=== PATIENT | male | born 2000 | race Caucasian/White ===

== ENCOUNTER 2023-09-16 22:26 | Emergency (ER) | payer OTHER, SELFPAY ==
--- NOTE | ~2023-09-16 | CT_ITS ---
EXAMINATION: CT ABDOMEN AND PELVIS WITHOUT CONTRAST CLINICAL INFORMATION: Left flank pain COMPARISON: None available. TECHNIQUE: Multidetector volumetric imaging was performed from the superior aspect of the liver through the pubic symphysis. Sagittal and coronal reformatted images were obtained on the technologist's workstation. This CT examination was performed using dose optimization techniques as appropriate, variously including the following: *Automated exposure control *Adjustment of mA and/or kV according to patient size (this includes techniques or standardized protocols for targeted exams where dose is matched to indication/reason for exam; i.e. extremities or head) *Use of iterative reconstruction technique DLP: 725 mGy-cm FINDINGS: LUNG BASES: The visualized lung bases are unremarkable. LIVER, GALLBLADDER, AND BILIARY TREE: The liver is normal in size, shape, and attenuation. No focal hepatic lesion or biliary ductal dilatation is identified on this noncontrast exam. Gallbladder appears slightly contracted and otherwise unremarkable. PANCREAS: Unremarkable. SPLEEN: Unremarkable. ADRENAL GLANDS: Unremarkable. KIDNEYS AND URETERS: No hydronephrosis or obstructing calculus bilaterally. BLADDER: Nearly empty and not adequately evaluated. GASTROINTESTINAL TRACT: No evidence of bowel obstruction or significant wall thickening. The appendix appears borderline dilated, though without surrounding inflammation to strongly suggest acute appendicitis. No free fluid or free air is seen. ABDOMINAL WALL: No significant hernia is appreciated. LYMPH NODES: Normal. VASCULAR: Unremarkable. PELVIC VISCERA: Unremarkable. OSSEOUS STRUCTURES: Multiple endplate Schmorl's nodes noted in the region of the thoracolumbar junction. CT/CT abdomen pelvis wo IV con IMPRESSION: No acute findings identified in the abdomen/pelvis. No hydronephrosis or obstructing calculus.
--- NOTE | ~2023-09-16 | US_ITS ---
EXAMINATION: US SCROTUM CLINICAL INFORMATION: Testicular pain. COMPARISON: None available. TECHNIQUE: A sonogram of the scrotum was performed assessing renae-scale appearance and color Doppler flow. Spectral Doppler analysis of the arterial and venous flow were performed in the testes bilaterally. FINDINGS: RIGHT: Right testicle measures 3.7 x 1.9 x 2.3 cm, volume 8 mL. No focal testicular parenchymal lesions are visualized. Spectral Doppler analysis of the arterial and venous flow is normal in the right testis. Right epididymal head is normal in size. 0.2 cm simple appearing epididymal head cyst. No right hydrocele or varicocele is seen. Right epididymal Doppler flow is normal. LEFT: Left testicle measures 3.9 x 2.2 x 2.7 cm, volume 12 mL. No focal testicular parenchymal lesions are visualized. Spectral Doppler analysis of the arterial and venous flow is normal in the left testis. Left epididymal head is normal in size. 0.3 cm simple appearing epididymal head cyst. No left hydrocele or varicocele is seen. Left epididymal Doppler flow is normal. US/US scrotum IMPRESSION: No significant sonographic abnormality to explain the patient's symptoms.
[2023-09-16 22:36] VITALS: BP 136/78; PULSE 90; RESP 16; TEMP 36.8; O2SAT 98; BMI 36.8
--- OUTSIDE RECORDS SUMMARY | 2023-09-17 00:13 | XMS_ITS | Continuity of Care Document ---
Author Name Unknown Organization [facility] Address [address] [place] [phone]- Care Team Providers Care Customs Director Name Role Phone Davion Polk MD Primary Care Physician Encounter [facility] [place] Date(s): 12/22/22 - 12/29/[address] [id number] Attending Physician: Emery Hamilton MD Admitting Physician: Emery Hamilton MD Referring Physician: Davion Polk MD Allergies, Adverse Reactions, Alerts Substance Reaction Severity Status penicillins Active Nuts Active Other Environmental Allergy Active Peanuts Active Other Food Allergy Active Immunizations Given and Recorded Vaccine Date Status Refusal Reason SARS-CoV-2 (COVID-19) mRNA BNT-162b2 vac 03/03/21 Given SARS-CoV-2 (COVID-19) mRNA BNT-162b2 vac 02/10/21 Given Medications acetaminophen 325 mg oral tablet 1 tablet = 325 mg, By Mouth, Every 4 hours, PRN for fever/pain, Maintenance, Tablet Start Date: 04/05/12 Status: Ordered buPROPion 150 mg/24 hours (XL) oral tablet, extended release 1 tablet = 150 mg, By Mouth, Every 24 hours, dose increase, add to 300 mg tablet for total daily dose of 450 mg, # 30 tablet, 2 Refills, Maintenance, 08/24/22 16:24:00 EST, ER Tablet, [facility] #[id number], Partial fill upon patient request if t... Start Date: 08/24/22 Status: Ordered buPROPion 300 mg/24 hours (XL) oral tablet, extended release 1 tablet, By Mouth, Daily, for 90 days, # 90 tablet, 2 Refills, Physician Stop 05/21/23 16:24:00 EDT, 08/24/22 16:24:00 EST, [facility][id number] Start Date: 08/24/22 Stop Date: 05/21/23 Status: Ordered Epipen Auto Injector 0.3 mg injectable solution 0.3mg., Intramuscular, Once, PRN anaphylaxis, Maintenance Start Date: 04/05/12 Status: Ordered escitalopram 20 mg oral tablet 1 tablet, By Mouth, Daily, # 90 tablet, 2 Refills, Maintenance, 08/24/22 16:24:00 EST, [facility] #[id number] Start Date: 08/24/22 Status: Ordered fluPHENAZine 1 mg oral tablet See Instructions, 1 tablet in am and 2 tablets at bedtime by mouth, # 90 tablet, Refills 2, Tot. Refills 2, 08/24/22 16:24:00 EST, Instructions Replace Required Details, Route to Pharmacy Electronically, [facility] #[id number] Start Date: 08/24/22 Status: Ordered ibuprofen 200 mg oral tablet 1 tablet = 200 mg, By Mouth, Every 4 hours, PRN as needed for pain, Maintenance Start Date: 04/05/12 Status: Ordered lamotrigine 100 mg oral tablet 1, tablet, By Mouth, 2 times a day, for 90 days, # 180 tablet, Refills 2, Tot. Refills 2, PhysicianStop 05/21/23 16:24:00 EDT, 08/24/22 16:24:00 EST, Route to Pharmacy Electronically, [facility] #[id number] Start Date: 08/24/22 Stop Date: 05/21/23 Status: Ordered topiramate 50 mg oral tablet 2 tablet = 100 mg, By Mouth, 2 times a day, # 120 tablet, 5 Refills, Maintenance, 08/24/22 16:24:00EST, Tablet, [facility] #[id number], Partial fill upon patient request if the prescription is for a schedule II opioid drug. Start Date: 08/24/22 Status: Ordered Zyrtec 10 mg oral tablet 1 tablet = 10 mg, By Mouth, Daily at bedtime, PRN Sinus Symptoms, Maintenance Start Date: 04/05/12 Status: Ordered Problem List Condition Confirmation Course Effective Dates Status [facility] St atus Informant Asperger syndrome Confirmed Active Chronic motor tic Confirmed Active Depression Confirmed Active Obese class II Confirmed Active Vital Signs Most recent to oldest [Reference Range]: 1 2 Height 169 cm (12/22/22 10:15 AM) 169 cm (12/22/22 9:28 AM) Weight 105.7 kg (12/22/22 10:15 AM) 105.7 kg (12/22/22 9:28 AM) Oxygen Saturation [94-100 %] 98 % (12/22/22 9:28 AM) Pulse Rate [55-90 bpm] 75 bpm (12/22/22 9:28 AM) Body Mass Index [18.5-24.99 kg/m2] 37.01 kg/m2 *>HHI* (12/22/22 9:28 AM) Blood Pressure [90-138/55-84 mm Hg] 114/ 70mm Hg (12/22/22 9:28 AM) Mode of Delivery (Oxygen) Room air (12/22/22 9:28 AM) Blood pressure sites Arm, left (12/22/22 9:28 AM) Dry Weight 105.7 kg (12/22/22 9:28 AM) Weight Obtained Via Standing scale (12/22/22 9:28 AM) Dry Weight Obtained Via Standing scale (12/22/22 9:28 AM) Patient Care team information Care Team Personnel Name: Davion Polk MD Position: [facility] General Pediatrics MD Member Role: PCP Address: Address: [address] [place] [address] Name: Mike Cleary MD Position: [facility] Psychiatry MD Member Role: Lifetime Consulting Physician Address: Address: [address] [place] [phone]- Name: Eber Jara MD Position: [facility] Psychiatry MD Member Role: Lifetime Consulting Physician Address: Address: [address] [place] [phone]- Care Team Related Persons Name: ROSELINE YODER Address: [address] [address] Name: JAMES MACE Address: [address] [address]
--- OUTSIDE RECORDS SUMMARY | 2023-09-17 00:13 | XMS_ITS | Continuity of Care Document ---
Author Name Unknown Organization [facility] Address [address] [place] [address], [address], [address] [place] [phone]- Care Team Providers Care Neon Molder Name Role Phone Davion Polk MD Primary Care Physician Encounter [facility] [place] Date(s): 08/01/23 - 08/31/23 [facility] [address] [facility], 3rd Floor, [address] [place] [phone]- Allergies, Adverse Reactions, Alerts Substance Reaction Severity Status penicillins Active Nuts Active Peanuts Active Other Food Allergy Active Other Environmental Allergy Active Mustard Active Immunizations Given and Recorded Vaccine Date Status Refusal Reason SARS-CoV-2 (COVID-19) mRNA BNT-162b2 vac 03/03/21 Given SARS-CoV-2 (COVID-19) mRNA BNT-162b2 vac 02/10/21 Given Medications Benadryl 25 mg oral tablet 25 mg, 1, tablet, By Mouth, Every 6 hours, 0 Refills, Maintenance Start Date: 08/24/23 Status: Ordered buPROPion 150 mg/24 hours (XL) oral tablet, extended release 1 tablet = 150 mg, By Mouth, Every 24 hours, add to 300 mg tablet for total daily dose of 450 mg, #30 tablet, 2 Refills, Maintenance, 08/23/23 17:58:00 EST, ER Tablet, [facility] #[id number], Partial fill upon patient request if the prescription... Start Date: 08/23/23 Status: Ordered buPROPion 300 mg/24 hours (XL) oral tablet, extended release 1 tablet, By Mouth, Daily, for 90 days, # 90 tablet, 2 Refills, Physician Stop 05/19/24 17:58:00 EDT, 08/23/23 17:58:00 EST, [facility] #[id number], 170, cm, 07/31/23 18:26:00 EDT, Height, 101.7, kg, 07/31/23 18:26:00 EDT, Dry Weight Start Date: 08/23/23 Stop Date: 05/19/24 Status: Ordered Epipen Auto Injector 0.3 mg injectable solution 0.3mg., Intramuscular, Once, PRN anaphylaxis, Maintenance Start Date: 04/05/12 Status: Ordered escitalopram 20 mg oral tablet 1 tablet, By Mouth, Daily, # 90 tablet, 2 Refills, Maintenance, 08/23/23 17:58:00 EST, [facility] #[id number], 170, cm, 07/31/23 18:26:00 EDT, Height, 101.7, kg, 07/31/23 18:26:00 EDT, Dry Weight Start Date: 08/23/23 Status: Ordered lamotrigine 100 mg oral tablet 1, tablet, By Mouth, 2 times a day, for 90 days, # 180 tablet, Refills 2, Tot. Refills 2, PhysicianStop 05/19/24 17:58:00 EDT, 08/23/23 17:58:00 EST, Route to Pharmacy Electronically, [facility] #[id number], 170, cm, 07/31/23 18:26:00 EDT, [facility] Start Date: 08/23/23 Stop Date: 05/19/24 Status: Ordered onabotulinumtoxinA 100 units injection See Instructions, 100 units to be reconstituted and injected by neurologist, # 1 each, 3 Refills, Maintenance, 05/23/23 14:03:00 EDT, [facility], Partial fill upon patient request ifthe prescription is for a schedule II opioid drug.,... Start Date: 05/23/23 Status: Ordered tetrabenazine 12.5 mg oral tablet 1 tablet = 12.5 mg, By Mouth, 2 times a day, # 60 tablet, 3 Refills, Maintenance, 03/27/23 15:34:00EDT, Tablet, [facility], Partial fill upon patient request if the prescription is for a schedule II opioid drug., 169, cm, 02/20/23 15... Start Date: 03/27/23 Status: Ordered topiramate 50 mg oral tablet 2 tablet = 100 mg, By Mouth, 2 times a day, # 120 tablet, 5 Refills, Maintenance, 08/23/23 17:58:00EST, Tablet, [facility] #[id number], Partial fill upon patient request if the prescription is for a schedule II opioid drug., 170, cm, 07/31/23 18... Start Date: 08/23/23 Status: Ordered Zyrtec 10 mg oral tablet 1 tablet = 10 mg, By Mouth, Daily at bedtime, PRN Sinus Symptoms, Maintenance Start Date: 04/05/12 Status: Ordered Problem List Condition Confirmation Course Effective Dates Status Health St atus Informant Asperger syndrome Confirmed Active Chronic motor tic Confirmed Active Daytime somnolence Confirmed Active Depression Confirmed Active Dysphasia 1 Confirmed 02/24/22 Active Obstructive sleep apnea Confirmed Active Severe obesity (BMI 35.0-39.9) with comorbidity Confirmed Active 1Outside Source Comment: Last Assessment & Plan: He will cough after swallowing water, had him turn his head and swallow and that worked, and then able to gulp down water. Social History Social History Type Response Smoking Status Never (less than 100 in lifetime) entered on: 05/23/23 Sex Patient Care team information Care Team Personnel Name: Davion Polk MD Position: [facility] Physician - Pediatrics Member Role: PCP Address: Address: [address] [place] [address] Name: Mike Cleary MD Position: [facility] Physician - Behavioral Health Member Role: Lifetime Consulting Physician Address: Address: [address] [place] [address]- Name: Eber Jara MD Position: [facility] Physician - Behavioral Health Member Role: Lifetime Consulting Physician Address: Address: [address] [place] [address]- Care Team Related Persons Name: ROSEILNE YODER Address: [address] Name: JAMES MACE Address: [address] [address]
--- OUTSIDE RECORDS SUMMARY | 2023-09-17 00:13 | XMS_ITS | Continuity of Care Document ---
Author Name Unknown Organization [facility] Address [address] [place] [address], [address] Floor, [address] [place] [address]- Care Team Providers Care Mover Helper Name Role Phone Davion Polk MD Primary Care Physician Encounter [facility] [place] Date(s): 03/19/23 - 04/18/23 [facility] [address] [facility], 3rd Floor, [address] [place] [address]- Allergies, Adverse Reactions, Alerts Substance Reaction Severity Status penicillins Active Nuts Active Peanuts Active Other Food Allergy Active Other Environmental Allergy Active Mustard Active Immunizations Given and Recorded Vaccine Date Status Refusal Reason SARS-CoV-2 (COVID-19) mRNA BNT-162b2 vac 03/03/21 Given SARS-CoV-2 (COVID-19) mRNA BNT-162b2 vac 02/10/21 Given Medications buPROPion 150 mg/24 hours (XL) oral tablet, extended release 1 tablet = 150 mg, By Mouth, Every 24 hours, dose increase, add to 300 mg tablet for total daily dose of 450 mg, # 30 tablet, 2 Refills, Maintenance, 01/08/23 13:32:00 EDT, ER Tablet, [facility] #[id number], Partial fill upon patient request if t... Start Date: 01/08/23 Status: Ordered buPROPion 300 mg/24 hours (XL) oral tablet, extended release 1 tablet, By Mouth, Daily, for 90 days, # 90 tablet, 2 Refills, Physician Stop 10/05/23 13:32:00 EST, 01/08/23 13:32:00 EDT, [facility] #[id number], 169, cm, 12/22/22 10:15:00 EST, Height, 105.7, kg, 12/22/22 9:28:00 EST, Dry Weight Start Date: 01/08/23 Stop Date: 10/05/23 Status: Ordered Epipen Auto Injector 0.3 mg injectable solution 0.3mg., Intramuscular, Once, PRN anaphylaxis, Maintenance Start Date: 04/05/12 Status: Ordered escitalopram 20 mg oral tablet 1 tablet, By Mouth, Daily, # 90 tablet, 2 Refills, Maintenance, 01/08/23 13:33:00 EDT, [facility] #[id number], 169, cm, 12/22/22 10:15:00 EST, Height, 105.7, kg, 12/22/22 9:28:00 EST, Dry Weight Start Date: 01/08/23 Status: Ordered fluPHENAZine 1 mg oral tablet See Instructions, 1 tablet in am and 2 tablets at bedtime by mouth, # 18 tablet, Refills 0, Tot. Refills 0, 03/21/23 15:30:00 EDT, Instructions Replace Required Details, Route to Pharmacy Electronically, [facility] #[id number], partial refill due... Start Date: 03/21/23 Status: Ordered lamotrigine 100 mg oral tablet 1, tablet, By Mouth, 2 times a day, for 90 days, # 180 tablet, Refills 2, Tot. Refills 2, PhysicianStop 10/05/23 13:33:00 EST, 01/08/23 13:33:00 EDT, Route to Pharmacy Electronically, [facility] #[id number], 169, cm, 12/22/22 10:15:00 EST, [facility]... Start Date: 01/08/23 Stop Date: 10/05/23 Status: Ordered tetrabenazine 12.5 mg oral tablet 1 tablet = 12.5 mg, By Mouth, 2 times a day, # 60 tablet, 3 Refills, Maintenance, 03/27/23 15:34:00EDT, Tablet, [facility], Partial fill upon patient request if the prescription is for a schedule II opioid drug., 169, cm, 02/20/23 15... Start Date: 03/27/23 Status: Ordered topiramate 50 mg oral tablet 2 tablet = 100 mg, By Mouth, 2 times a day, # 120 tablet, 5 Refills, Maintenance, 01/08/23 13:33:00EDT, Tablet, [facility] #[id number], Partial fill upon patient request if the prescription is for a schedule II opioid drug., 169, cm, 12/22/22 10... Start Date: 01/08/23 Status: Ordered Zyrtec 10 mg oral tablet 1 tablet = 10 mg, By Mouth, Daily at bedtime, PRN Sinus Symptoms, Maintenance Start Date: 04/05/12 Status: Ordered Problem List Condition Confirmation Course Effective Dates Status Health St atus Informant Asperger syndrome Confirmed Active Chronic motor tic Confirmed Active Depression Confirmed Active Obese class II Confirmed Active Patient Care team information Care Team Personnel Name: Davion Polk MD Position: [facility] Physician - Pediatrics Member Role: PCP Address: Address: [address] [place] [address] [place] [address] Name: Evin RODRIGUES, Mike Singh Position: [facility] Physician - Behavioral Health Member Role: Lifetime Consulting Physician Address: Address: [address] [place] [address] Name: Eber Jara MD Position: [facility] Physician - Behavioral Health Member Role: Lifetime Consulting Physician Address: Address: [address] [place] [phone] Care Team Related Persons Name: ROSELINE YODER Address: home [address] [place] [address] Name: JAMES MACE Address: [address]
--- OUTSIDE RECORDS SUMMARY | 2023-09-17 00:13 | XMS_ITS | Continuity of Care Document ---
Author Name Unknown Organization [facility] Address [address] [place] [address]- Care Team Providers Care Social Media Senior Associate Name Role Phone Davion Polk MD Primary Care Physician Encounter [facility] [place] Date(s): 12/22/22 - 01/21/[address] [address] Attending Physician: Diego Mcdowell Admitting Physician: AdmDiego green Referring Physician: Admtr, Ar8 Allergies, Adverse Reactions, Alerts Substance Reaction Severity Status penicillins Active Nuts Active Peanuts Active Other Food Allergy Active Other Environmental Allergy Active Immunizations Given and Recorded Vaccine [...] Refills, Maintenance, 01/08/23 13:32:00 EDT, ER Tablet, [facility] #[id number], Partial fill upon patient request if t... Start Date: 01/08/23 Status: Ordered buPROPion 300 mg/24 hours (XL) oral tablet, extended release 1 tablet, By Mouth, Daily, for 90 days, # 90 tablet, 2 Refills, Physician Stop 10/05/23 13:32:00 EST, 01/08/23 13:32:00 EDT, [facility] #[id number], 169, cm, 12/22/22 10:15:00 EST, Height, 105.7, kg, 12/22/22 9:28:00 EST, Dry Weight Start Date: 01/08/23 Stop Date: 10/05/23 Status: Ordered Epipen Auto Injector 0.3 mg injectable solution 0.3mg., Intramuscular, Once, PRN anaphylaxis, Maintenance Start Date: 04/05/12 Status: Ordered escitalopram 20 mg oral tablet 1 tablet, By Mouth, Daily, # 90 tablet, 2 Refills, Maintenance, 01/08/23 13:33:00 EDT, [facility] #[id number], 169, cm, 12/22/22 10:15:00 EST, Height, 105.7, kg, 12/22/22 9:28:00 EST, Dry Weight Start Date: 01/08/23 Status: Ordered fluPHENAZine 1 mg oral tablet See Instructions, 1 tablet in am and 2 tablets at bedtime by mouth, # 90 tablet, Refills 2, Tot. Refills 2, 01/08/23 13:32:00 EDT, Instructions Replace Required Details, Route to Pharmacy Electronically, [facility] #[id number], 169, cm, 12/22/22... Start Date: 01/08/23 Status: Ordered ibuprofen 200 mg oral tablet 1 tablet = 200 mg, By Mouth, Every 4 hours, PRN as needed for pain, Maintenance Start Date: 04/05/12 Status: Ordered lamotrigine 100 mg oral tablet 1, tablet, By Mouth, 2 times a day, for 90 days, # 180 tablet, Refills 2, Tot. Refills 2, [facility] 10/05/23 13:33:00 EST, 01/08/23 13:33:00 EDT, Route to Pharmacy Electronically, [facility] #[id number], 169, cm, 12/22/22 10:15:00 EST, [facility]... Start Date: 01/08/23 Stop Date: 10/05/23 Status: Ordered topiramate 50 mg oral tablet 2 tablet = 100 mg, By Mouth, 2 times a day, # 120 tablet, 5 Refills, Maintenance, 01/08/23 13:33:00EDT, Tablet, [facility] #[id number], Partial fill upon patient request if the [...] Team Personnel Name: Davion Polk MD Position: [facility] General Pediatrics MD Member Role: PCP Address: Address: [address] [place] [id number] Name: Mike Cleary MD Position: [facility] Psychiatry MD Member Role: Lifetime Consulting Physician Address: Address: [address] [place] [phone]- Name: Eber Jara MD Position: [facility] Psychiatry MD Member Role: Lifetime Consulting Physician Address: Address: [address] [place] [phone]- Care Team Related Persons Name: ROSELINE YODER Address: home [address] [place] [address] Name: JAMES MACE Address: [address]
--- OUTSIDE RECORDS SUMMARY | 2023-09-17 00:13 | XMS_ITS | Continuity of Care Document ---
Author Name Unknown Organization [facility] ter Address [address] [place] [address]- Care Team Providers Care District Associate Judge Name Role Phone Davion Polk MD Primary Care Physician [phone] [place] [facility] [id number] Date(s): 07/31/23 - 07/31/[address] [address]- Discharge Disposition: A-D/C Home Attending Physician: Nathan Rivera MD Admitting Physician: Nathan Rivera MD Referring Physician: Not on Staff, Referring MD Allergies, Adverse Reactions, Alerts Substance Reaction Severity Status penicillins Active Nuts Active Peanuts Active Mustard Active Other Environmental Allergy Active Other Food Allergy Active Immunizations Given [...] 450 mg, #30 tablet, 2 Refills, Maintenance, 06/11/23 13:15:00 EDT, ER Tablet, [facility] #[id number], Partial fill upon patient request if the prescription... Start Date: 06/11/23 Status: Ordered buPROPion 300 mg/24 hours (XL) oral tablet, extended release 1 tablet, By Mouth, Daily, for 90 days, # 90 tablet, 2 Refills, Physician Stop 10/05/23 13:32:00 EST, 01/08/23 13:32:00 EDT, [facility] #[id number], 169, cm, 12/22/22 10:15:00 EST, Height, 105.7, kg, 12/22/22 9:28:00 EST, Dry Weight Start Date: 01/08/23 Stop Date: 10/05/23 Status: Ordered Epipen Auto Injector 0.3 mg injectable solution 0.3mg., Intramuscular, Once, PRN anaphylaxis, Maintenance Start Date: 04/05/12 Status: Ordered escitalopram 20 mg oral tablet 1 tablet, By Mouth, Daily, # 90 tablet, 2 Refills, Maintenance, 01/08/23 13:33:00 EDT, [facility] #[id number], 169, cm, 12/22/22 10:15:00 EST, Height, 105.7, kg, 12/22/22 9:28:00 EST, Dry Weight Start Date: 01/08/23 Status: Ordered fluPHENAZine 1 mg oral tablet See Instructions, 1 tablet in am and 2 tablets at bedtime by mouth, # 18 tablet, Refills 0, Tot. Refills 0, 03/21/23 15:30:00 EDT, Instructions Replace Required Details, Route to Pharmacy Electronically, [facility] #[id number], partial refill due... Start Date: 03/21/23 Status: Ordered lamotrigine 100 mg oral tablet 1, tablet, By Mouth, 2 times a day, for 90 days, # 180 tablet, Refills 2, Tot. Refills 2, PhysicianStop 10/05/23 13:33:00 EST, 01/08/23 13:33:00 EDT, Route to Pharmacy Electronically, [facility] #[id number], 169, cm, 12/22/22 10:15:00 EST, Heigh... Start Date: 01/08/23 Stop Date: 10/05/23 Status: Ordered onabotulinumtoxinA 100 units injection See Instructions, 100 units to be reconstituted and injected by neurologist, # 1 each, 3 Refills, Maintenance, 05/23/23 14:03:00 EDT, [facility], Partial fill upon patient request ifthe prescription is for a schedule II opioid drug.,... Start Date: 05/23/23 Status: Ordered tetrabenazine 12.5 mg oral tablet 1 tablet = 12.5 mg, By Mouth, 2 times a day, # 60 tablet, 3 Refills, Maintenance, 03/27/23 15:34:00EDT, Tablet, [facility], Partial fill upon patient request if the prescription is for a schedule II opioid drug., 169, cm, 02/20/23 15... Start Date: 03/27/23 Status: Ordered topiramate 50 mg oral tablet 2 tablet = 100 mg, By Mouth, 2 times a day, # 120 tablet, 5 Refills, Maintenance, 01/08/23 13:33:00EDT, Tablet, [facility] #[id number], Partial fill upon patient request if the prescription is for a schedule II opioid drug., 169, cm, 12/22/22 10... Start Date: 01/08/23 Status: Ordered Zyrtec 10 mg oral tablet 1 tablet = 10 mg, By Mouth, Daily at bedtime, PRN Sinus Symptoms, Maintenance Start Date: 04/05/12 Status: Ordered Problem List Condition Confirmation Course Effective Dates Status Health St at Informant Asperger syndrome Confirmed Active Chronic motor tic Confirmed Active Daytime somnolence Confirmed Active Depression Confirmed Active Dysphasia 1 Confirmed 02/24/22 Active Obese class I Confirmed Active Obstructive sleep apnea Confirmed Active 1Outside Source Comment: Last Assessment & Plan: He will cough after swallowing water, had him turn his head and swallow and that worked, and then able to gulp down water. Results Radiology Reports * Exam Date Time Procedure Performing Provider Status 07/31/23 12:[address] Head/Brain W/O Contrast Nesha Castaneda; Bjorn (Verified) Notes: (CT Head/Brain W/O Contrast) Reason For Exam: Headache(s) RESULT: CT Head/Brain W/O Contrast CT Head/Brain W/O Contrast INDICATION: Hx of Present Illness: pt here with numbness and sts his body was numb has hx of autismand mom sts he has a lot of balance issues and is on his way towards [place] this past weekend he had a lot of neuro issues sts he was laying in bed and felt like he was having a seizure; Reason: Headache(s); Clinical Question(s): Tumor Primary; Order Comment: TECHNIQUE: Noncontrast head CT using axial technique and reconstructed in axial and coronal planes.Iterative reconstruction techniques are used to optimize dose and image quality. CTDIvol Head: 46.30 mGy, DLP Head: 773 mGy*cm. COMPARISON: None. FINDINGS: Renal Dialysis Rn view findings, lines and tubes: None. BRAIN AND EXTRA-AXIAL SPACES: No parenchymal hemorrhage, midline shift, or mass effect. Kaiser-white matter differentiation is wellpreserved. No acute infarct. Ventricles, sulci, and basilar cisterns are normal. No white matter lesions. No subarachnoid hemorrhage. No subdural or epidural collection. CALVARIUM, SKULL BASE, AND SOFT TISSUES: No fractures or suspicious bony lesions. The paranasal sinuses and mastoid air cells are clear. Visualized orbits and globes are intact. The extracranial soft tissues are unremarkable. IMPRESSION: No acute intracranial pathology. WSN: [id number] Ordering Physician: Ramesh Armstrong Dictated By: Belkis Botello MD Dictated Date/Time: 07/31/23 12:15 p Reviewed By: Belkis Botello MD Signed By: Belkis Botello MD Signed Date/Time: 07/31/23 12:15 pm Transcribed By: ADAM Transcribed Date/Time: 07/31/23 12:11 pm Vital Signs Most recent to oldest [Reference Range]: 1 2 3 Height 170 cm (07/31/23 6:26 PM) 170 cm (07/31/23 9:30 AM) Oxygen Saturation [94-100 %] 100 % (07/31/23 6:26 PM) 100 % (07/31/23 4:12 PM) 100 % (07/31/23 9:30 AM) Pulse Rate [55-90 bpm] 86 bpm (07/31/23:26 PM) 80 bpm (07/31/23 4:12 PM) 93 bpm *H* (07/31/23 9:30 AM) Blood Pressure [90-138/55-84 mm Hg] 133/67mm Hg (07/31/23 6:26 PM) 118/73mm Hg (07/31/23 4:12 PM) 147/75mm Hg *H* (07/31/23 9:30 AM) Respiratory Rate [16-30 br/min] 16 br/min (07/31/23:26 PM) 18 br/min (07/31/23 4:12 PM) 16 br/min (07/31/23 9:30 AM) Temperature [96.8-100.4 DegF] 98.2 DegF (07/31/23 6:26 PM) 97.5 DegF (07/31/23 4:12 PM) 99.0 DegF (07/31/23 9:30 AM) Mode of Delivery (Oxygen) Room air (07/31/23 6:26 PM) Room air (07/31/23 4:12 PM) Room air (07/31/23 9:30 AM) Blood pressure sites Arm, right (07/31/23 6:26 PM) Arm, right (07/31/23 4:12 PM) Arm, right (07/31/23 9:30 AM) Temperature Route Oral (07/31/23 6:26 PM) Oral (07/31/23 4:12 PM) Oral (07/31/23 9:30 AM) Dry Weight 101.7 kg (07/31/23 6:26 PM) 101.7 kg (07/31/23 9:30 AM) Dry Weight Obtained Via Standing scale (07/31/23 9:30 AM) Social History Social History Type Response Smoking Status Never (less than 100 in lifetime) entered on: 05/23/23 Sex Patient Care team information Care Team Personnel Name: Davion Polk MD Position: [facility] Physician - Pediatrics Member Role: PCP Address: Address: [address] [place] [address] Name: Evin RODRIGUES, Mike Singh Position: [facility] Physician - Behavioral Health Member Role: Lifetime Consulting Physician Address: Address: [address] [place] [address]- Name: Eber Jara MD Position: [facility] Physician - Behavioral Health Member Role: Lifetime Consulting Physician Address: Address: [address] [place] [address]- Name: Misa Del Real DO Position: [facility] Resident Member Role: Resident Address: Address: [address] [place] [address] Name: Wood Michael Position: [facility] Associate Professional Member Role: ED Physician Math Professor Address: Address: [address] [place] [address] Name: Fouzia Manrique Position: [facility] ED TA [facility] Name: Senthil RN, Zuleima Position: [facility] ED RN W/OE and Tasks Member Role: Patient Care Provider Name: Nathan Rivera MD Position: [facility] ED Medicine MD Member Role: Admitting Physician Address: Address: [address] [place] [address] [place] [address]- [place] Care Team Related Persons Name: PARESHROSELINE Address: [address] [address] Name: JAMES MACE Address: [place] [address]
--- OUTSIDE RECORDS SUMMARY | 2023-09-17 00:13 | XMS_ITS | Continuity of Care Document ---
Author Name Unknown Organization [facility] Address [address] [place] [address]- Care Team Providers Care Clinical Administrator Name Role Phone Davion Polk MD Primary Care Physician [place] [facility] [place] [id number] Date(s): 03/14/22 - 04/13/[address] [address] Attending Physician: AdmDiego green Admitting Physician: Admtr, Ar8 Referring Physician: Admtr, Ar8 Allergies, Adverse Reactions, [...] Maintenance, Tablet Start Date: 04/05/12 Status: Ordered Bacitracin Topical Oint 1 application, Topically, 4 times a day, PRN infection, Maintenance Start Date: 04/05/12 Status: Ordered buPROPion 150 mg/24 hours (XL) oral tablet, extended release 1 tablet = 150 mg, By Mouth, Every 24 hours, dose increase, add to 300 mg tablet for total daily dose of 450 mg, # 30 tablet, 1 Refills, Maintenance, 02/16/22 15:49:00 EDT, ER Tablet, [facility] #[id number], Partial fill upon patient request if t... Start Date: 02/16/22 Status: Ordered buPROPion 300 mg/24 hours (XL) oral tablet, extended release 1 tablet, By Mouth, Daily, for 90 days, # 90 tablet, 1 Refills, Physician Stop 08/15/22 15:49:00 EDT, 02/16/22 15:49:00 EDT, [facility] #[id number] Start Date: 02/16/22 Stop Date: 08/15/22 Status: Ordered Childrens Chewable Multivitamins 1, By Mouth, Daily, 0 Refills, Maintenance Start Date: 04/05/12 Status: Ordered diphenhydramine 25 mg oral tablet 1 tablet = 25 mg, By Mouth, 2 times a day, PRN for allergy symptoms, Maintenance, Tablet Start Date: 04/05/12 Status: Ordered Epipen Auto Injector 0.3 mg injectable solution 0.3mg., Intramuscular, Once, PRN anaphylaxis, Maintenance Start Date: 04/05/12 Status: Ordered escitalopram 20 mg oral tablet 1 tablet, By Mouth, Daily, # 90 tablet, 1 Refills, Maintenance, 02/16/22 15:49:00 EDT, [facility] #[id number] Start Date: 02/16/22 Status: Ordered fluPHENAZine 1 mg oral tablet See Instructions, 1 tablet in am and 2 tablets at bedtime by mouth, # 90 tablet, Refills 2, Tot. Refills 2, 02/16/22 15:49:00 EDT, Instructions Replace Required Details, Route to Pharmacy Electronically, [facility] #[id number] Start Date: 02/16/22 Status: Ordered HydroCORTisone 1% Topical 1 application, Topically, 3 times a day, Maintenance, Cream Start Date: 04/05/12 Status: Ordered ibuprofen 200 mg oral tablet 1 tablet = 200 mg, By Mouth, Every 4 hours, PRN as needed for pain, Maintenance Start Date: 04/05/12 Status: Ordered lamotrigine 100 mg oral tablet 1, tablet, By Mouth, 2 times a day, for 90 days, # 180 tablet, Refills 1, Tot. Refills 1, PhysicianStop 08/15/22 15:49:00 EDT, 02/16/22 15:49:00 EDT, Route to Pharmacy Electronically, [facility] #[id number] Start Date: 02/16/22 Stop Date: 08/15/22 Status: Ordered MiraLax oral powder for reconstitution = 17 Gm, By Mouth, Daily, PRN Constipation, 0 Refills, Maintenance Start Date: 04/05/12 Status: Ordered topiramate 25 mg oral capsule See Instructions, 1 capsule By Mouth in am and 1 capsules by mouth in pm dose increase, # 60 capsule, 2 Refills, Maintenance, 02/16/22 15:49:00 EDT, [facility] #[id number], Partial fill upon patient request if the prescription is for a schedul... Start Date: 02/16/22 Status: Ordered Zyrtec 10 mg oral tablet 1 tablet = 10 mg, By Mouth, Daily at bedtime, PRN Sinus Symptoms, Maintenance Start Date: 04/05/12 Status: Ordered Problem List Condition Effective Dates Status Health Status Inform ant Asperger syndrome(Confirmed) Active Chronic motor tic(Confirmed) Active Depression(Confirmed) Active
--- OUTSIDE RECORDS SUMMARY | 2023-09-17 00:13 | XMS_ITS | Patient Health Record ---
Author Name Unknown [facility] Address [address] [place] [address] Care Team Providers Care Cath Lab Radiological Technologist Name Role Phone Davion Polk MD Primary Care Provider UnavailAgus Londono Unavailable [phone] ALLERGIES Allergen (clinical drug ingredient) Drug/Non Drug Allergy documented on EMR Reaction Allergy Type Onset Date Status Seasonal allergies (uncoded) Unknown Allergy Active Penicillin Unknown Drug Allergy Active mustard Unknown Drug Allergy Active Shellfish (FN) Shellfish-derived Products Unknown Drug Allergy Active Tree Nuts Unknown Allergy Active REASON FOR REFERRAL No Information MEDICATIONS Medication SIG (Take, Route, Frequency, Duration) Notes Start Date End Date Status fluPHENAZine HCl 1 MG 1 tablet Orally Once a day for 30 day(s) 2mg in the AM Active Topiramate 25 MG 1 tablet Orally Once a day for 30 day(s) Active Topiramate 50 MG 1 tablet Orally Once a day for 30 day(s) Active buPROPion HCl ER (XL) 450 MG 1 tablet in the morning Orally Once a day for 30 day(s) Active PROzac Not-Taking Tenex Not-Taking Lexapro Active EpiPen when needed Active lamoTRIgine 100 MG 1 tablet Orally Once a day for 30 day(s) Active SOCIAL HISTORY Sex Assigned At : Social History Observation Description Sex Assigned At Unknown Alcohol Screen Question Answer Notes Did you have a drink contain ing alcohol in the past year? Yes How often did you have a dri nk containing alcohol in the past year? Monthly or less (1 point) Points 1 Interpretation Negative Tobacco use other than smoking: Question Answer Notes Are you an other tobacco user? No PROBLEMS Problem Type ICD Code Onset Dates Problem Status W/U Status Risk SNOMED Code Notes Problem Plantar fascial fibromatosis (M72.2) Active confirmed Plantar fascial fibromatosis (79940547) PLAN OF TREATMENT Pending Test Test Name Order Date X ray : Foot, left 3V 03/08/2022 X ray : Foot, right 3V 03/08/2022 Insurance Providers Payer Name Payer Address Payer Phone Subscriber Number Group Number Insured Name Patient Relationship to Insured Coverage Start Date Coverage End Date [facility] [address] [facility] [place] [address] [phone] [id number] Yocasta Toscano Natural Child - Insured has Financial Responsibility MEDICAL (GENERAL) HISTORY Medical History History ICD Code Depression Surgical History Surgery Date(Month/Year)
--- OUTSIDE RECORDS SUMMARY | 2023-09-17 00:13 | XMS_ITS | Continuity of Care Document ---
Author Name Unknown Organization [facility] Address [address], [address], [address] [place] [address]- Care Team Providers Care Music Industry Internship Name Role Phone Davion Polk MD Primary Care Physician Encounter [facility] [place] Date(s): 05/23/23 - 06/22/23 [facility] [address], [address], [address] [place] [address]- Allergies, Adverse Reactions, Alerts Substance Reaction Severity [...] Refills, Maintenance, 06/11/23 13:15:00 EDT, ER Tablet, [facility] #[id number], Partial fill upon patient request if the prescription... Start Date: 06/11/23 Status: Ordered buPROPion 300 mg/24 hours (XL) oral tablet, extended release 1 tablet, By Mouth, Daily, for 90 days, # 90 tablet, 2 Refills, Physician Stop 10/05/23 13:32:00 EST, 01/08/23 13:32:00 EDT, [facility] #[id number], 169, cm, 12/22/22 10:15:00 EST, Height, 105.7, kg, 12/22/22 9:28:00 EST, Dry Weight Start Date: 01/08/23 Stop Date: 10/05/23 Status: Ordered Epipen Auto Injector 0.3 mg injectable solution 0.3mg., Intramuscular, Once, PRN anaphylaxis, Maintenance Start Date: 04/05/12 Status: Ordered escitalopram 20 mg oral tablet 1 tablet, By Mouth, Daily, # 90 tablet, 2 Refills, Maintenance, 01/08/23 13:33:00 EDT, [facility] #[id number], 169, cm, 12/22/22 10:15:00 EST, Height, 105.7, kg, 12/22/22 9:28:00 EST, Dry Weight Start Date: 01/08/23 Status: Ordered fluPHENAZine 1 mg oral tablet See Instructions, 1 tablet in am and 2 tablets at bedtime by mouth, # 18 tablet, Refills 0, Tot. Refills 0, 03/21/23 15:30:00 EDT, Instructions Replace Required Details, Route to Pharmacy Electronically, [facility] #[id number], partial refill due... Start Date: 03/21/23 Status: Ordered lamotrigine 100 mg oral tablet 1, tablet, By Mouth, 2 times a day, for 90 days, # 180 tablet, Refills 2, Tot. Refills 2, PhysicianStop 10/05/23 13:33:00 EST, 01/08/23 13:33:00 EDT, Route to Pharmacy Electronically, [facility] #[id number], 169, cm, 12/22/22 10:15:00 EST, Heigh... Start Date: 01/08/23 Stop Date: 10/05/23 Status: Ordered onabotulinumtoxinA 100 units injection See Instructions, 100 units to be reconstituted and injected by neurologist, # 1 each, 3 Refills, Maintenance, 05/23/23 14:03:00 EDT, [facility], Partial fill upon patient request ifthe prescription is for a schedule II opioid drug.,... Start Date: 05/23/23 Status: Ordered tetrabenazine 12.5 mg oral tablet 1 tablet = 12.5 mg, By Mouth, 2 times a day, # 60 tablet, 3 Refills, Maintenance, 03/27/23 15:34:00EDT, Tablet, [facility], Partial fill upon patient request if the prescription is for a schedule II opioid drug., 169, cm, 02/20/23 15... Start Date: 03/27/23 Status: Ordered topiramate 50 mg oral tablet 2 tablet = 100 mg, By Mouth, 2 times a day, # 120 tablet, 5 Refills, Maintenance, 01/08/23 13:33:00EDT, Tablet, [facility] #[id number], Partial fill upon patient request if the [...] Confirmed Active Depression Confirmed Active Obese class I Confirmed Active Social History Social History Type Response Smoking Status Never (less than 100 in lifetime) entered on: 05/23/23 Sex Patient Care team information Care Team Personnel Name: Davion Polk MD Position: [facility] Physician - Pediatrics Member Role: PCP Address: Address: [address] [place] [address] [place], [place] [address] Name: Mike Cleary MD Position: [facility] Physician - Behavioral Health Member Role: Lifetime Consulting Physician Address: Address: [address] [place] [id number] Name: Eber Jara MD Position: [facility] Physician - Behavioral Health Member Role: Lifetime Consulting Physician Address: Address: [address] [place] [id number] Care Team Related Persons Name: ROSELINE YODER Address: [address] [place] [address] Name: JAMES MACE Address: [address] [place] [address]
--- NOTE | 2023-09-17 00:18 | ED.GENADULT ---
HPI - General Adult General Chief complaint: General Medical Stated complaint: severe testicular pain since the AM Time Seen by Provider: 09/17/23 00:05 Source: patient and family Mode of arrival: ambulatory History of Present Illness HPI narrative: Pt is a 22yo autistic male who presents to the ED with testicular pain. Pt states the pain is severe and started at 0800 this morning. Pt states the pain is worse in the left testicle. Pt denies any urethral discharge, new sexual contacts, dysuria, or abdominal pain. Related Data Allergies Allergy/AdvReac Type Severity Reaction Status Date / Time mustard [MUSTARD] Allergy Unknown SWELLING Unverified 07/01/20 16:53 peanut [PEANUT] Allergy Unknown SWELLING Unverified 07/01/20 16:53 penicillin G Allergy Unknown Verified 06/04/19 00:00 Penicillins [PENICILLINS] Allergy Unknown RASH Unverified 07/01/20 16:53 Sulfa (Sulfonamide Allergy Unknown UNKNOWN Unverified 07/01/20 16:53 Antibiotics) [SULFA (SULFONAMIDE ANTIBIOTICS)] tree nut [TREE NUT] Allergy Unknown SWELLING Unverified 07/01/20 16:53 mustard Allergy Unknown Uncoded 06/04/19 00:00 Seasonale Allergy Unknown Uncoded 06/04/19 00:00 tree nuts Allergy Unknown Uncoded 06/04/19 00:00 Review of Systems Constitutional: Constitutional: Denies fever(s) and Denies headache(s) ENT: Denies headache(s) Cardiovascular: Cardiovascular: Denies chest pain and Denies dyspnea Respiratory: Respiratory: Denies dyspnea Gastrointestinal: Gastrointestinal: Denies abdominal pain, Denies constipation, Denies diarrhea, Denies nausea and Denies vomiting Genitourinary: Genitourinary: Denies difficulty urinating, Denies dysuria, Denies flank pain, Denies penile discharge and Reports testicular pain Neurologic: Denies headache(s) COUNTS INCLUDE 234 BEDS AT THE [facility] Social History Social History Advance Directives: No Advance Directives Information Provided: No Physical Exam ED Vital Signs: Vital Signs - 24 hr 09/16/23 22:36 Temperature 98.2 F Pulse Rate 90 Respiratory Rate 16 Blood Pressure 136/78 Pulse Oximetry 98 Oxygen Delivery Method Room Air BMI result Body Mass Index 36.8 Const General: cooperative, comfortable, no acute distress, alert and awake Orientation/consciousness: patient oriented x3 HENMT Head: Yes normal to inspection Ears: hearing grossly normal bilaterally General nose exam: Normal external nose present Eyes General: appearance normal, both eyes and all related structures Resp Effort & Inspection: normal respiratory effort and able to speak in complete sentences GI Inspection: No distended Palpation (GI): Soft to palpation, nontender, no guarding and not rigid Male General Exam: Yes normal external exam, No edema, No erythema and No tenderness Penis: normal penis, no masses, no nodules and no swelling Scrotum: scrotum normal and no scrotal swelling Neuro General: patient oriented x3 Course Reevaluation(s) Reevaluation #1: Patient's workup is unremarkable, there is no to torsion, no evidence of epididymitis, no evidence of UTI or uropathy. Patient will follow-up with urology Time: 01:51 Medical Decision Making Medical Decision Making MDM Narrative: Patient complains of intermittent testicular pain mostly left-sided since anion this morning. Initial concern to be testicular torsion. However his pain is currently controlled. Ultrasound shows no evidence of testicular torsion or hydrocele. Plan for UA, CT scan the abdomen pelvis with labs to evaluate for obstructive uropathy. I did not palpate any inguinal hernia on exam Differential Diagnosis Differential Diagnoses: The differential diagnosis associated with the presentation includes (kidney stones, epididymitis, testicular torsion, UTI, hydrocele) Lab Data 09/17/23 01:19 09/17/23 01:18 Labs: Lab Results 09/17/23 09/17/23 09/17/23 Range/Units 00:33 01:18 01:19 WBC 9.4 (4.8-10.8) X10*3/uL RBC 5.44 (4.60-5.80) X10*6/uL Hgb 16.3 (14.0-18.0) g/dl Hct 47.6 (42.0-52.0) % MCV 87.5 (80.0-98.0) fL MCH 30.0 (27.0-33.0) pg MCHC 34.2 (31.0-36.0) g/dl RDW 12.2 (11.0-16.0) % Plt Count 165 (160-400) X10*3/uL MPV 11.3 (9.4-12.4) fL Immature Gran % (Auto) 0.4 (0.0-0.4) % Neut % (Auto) 60.0 (45-73) % Lymph % (Auto) 30.5 (20-40) % [place] % (Auto) 8.1 (2-11) % Eos % (Auto) 0.9 (0-4) % Baso % (Auto) 0.1 (0-2) % Lymph # (Auto) 2.9 (1.2-4.9) X10*3/uL [place] # (Auto) 0.8 (0.1-1.2) X10*3/uL Eos # (Auto) 0.1 (0.0-0.4) X10*3/uL Baso # (Auto) 0.0 (0.0-0.2) X10*3/uL Abs Immat Gran (auto) 0.04 H (0.00-0.03) X10*3/uL Absolute Neuts (auto) 5.6 (2.0-8.3) x10*3/uL Absolute Nucleated RBC 0.000 (0.0-0.012) X10*3/uL Nucleated RBC % (auto) 0.0 (0.0-0.2) /100WBC Sodium 141 (135-145) mmol/L Potassium 4.0 (3.3-5.1) mmol/L Chloride 108 (96-108) mmol/L Carbon Dioxide 22 (22-29) mmol/L Anion Gap 15 (12-20) BUN 17 H (9-16) mg/dL Creatinine 1.10 (0.5-1.4) mg/dL Estim Creat Clear Calc 121.5 Estimated GFR > 60 Random Glucose 87 (60-115) mg/dL Calcium 9.7 (8.4-10.2) mg/dL Urine Color Yellow Urine Appearance Clear Urine pH 7.0 (5.0-9.0) Ur Specific [place] 1.015 (1.005-1.025) Urine Protein Trace (Neg-Trace) mg/dL Urine Glucose (UA) Negative (Negative) mg/dL Urine Ketones Trace (Negative) mg/dL Urine Blood Negative (Negative) Urine Nitrite Negative (Negative) Ur Leukocyte Esterase Negative (Negative) Urine RBC 0-2 (0-2) /HPF Urine WBC 0-5 (0-5) /HPF Ur Squamous Epith Cells 0-2 (0-2) /HPF Urine Bacteria None Seen (None Seen) Hyaline Casts 0-2 (0-2) /LPF Discharge Plan Discharge Clinical Impression: Left testicular pain Patient Disposition: Home, Self-Care Instructions: Testicle Pain (ED) Additional Instructions: Your workup in the emergency department today was reassuring. This includes or testicular ultrasound, CT scan abdomen pelvis, lab work and urinalysis It is unclear what the cause of your testicular pain is You do not have testicular torsion, epididymitis, urinary tract infection or kidney stone Follow-up with urology at the number provided Referrals: Kasie Mckeon MD [Physician] - (testicular pain)
[2023-09-17 00:41] LABS: Appearance Urine Clear; Color Urine Yellow; Glucose Urine UA Negative (Negative); Leukocyte Esterase Urine Negative (Negative); Nitrite Urine Negative (Negative); Specific Gravity - Urine 1.015 (1.005-1.025); Urine Blood Negative (Negative); Urine Ketones Trace mg/dL (Negative); Urine Protein Trace mg/dL (Neg-Trace)
[2023-09-17 00:51] LABS: Bacteria Urine None Seen (None Seen); Hyaline Casts Urine 0-2 /LPF (0-2); RBC Urine 0-2 /HPF (0-2); Squamous Epithelial Cell Urine 0-2 /HPF (0-2); WBC Urine 0-5 /HPF (0-5)
[2023-09-17 01:23] LABS: MANUAL DIFF FLAG NO
[2023-09-17 01:24] LABS: Basophils Percent Auto 0.1 % (0-2); Eosinophils Absolute Auto 0.1 X10*3/uL (0.0-0.4); Eosinophils Percent Auto 0.9 % (0-4); Hematocrit 47.6 % (42.0-52.0); Hemoglobin 16.3 g/dl (14.0-18.0); Imm Gran Abs Auto 0.04 X10*3/uL (0.00-0.03); Imm Gran Pct Auto 0.4 % (0.0-0.4); Lymphocytes Absolute Auto 2.9 X10*3/uL (1.2-4.9); Lymphocytes Percent Auto 30.5 % (20-40); Mean Corpuscular HGB Conc 34.2 g/dl (31.0-36.0); Mean Corpuscular Volume 87.5 fL (80.0-98.0); Mean Platelet Volume 11.3 fL (9.4-12.4); Monocytes Absolute Auto 0.8 X10*3/uL (0.1-1.2); Monocytes Percent Auto 8.1 % (2-11); Neutrophils Absolute Auto 5.6 x10*3/uL (2.0-8.3); Platelet Count 165 X10*3/uL (160-400); Red Blood Count 5.44 X10*6/uL (4.60-5.80); Red Cell Distribution Width 12.2 % (11.0-16.0); White Blood Count 9.4 X10*3/uL (4.8-10.8)
[2023-09-17 01:41] LABS: Anion Gap 15 (12-20); Blood Urea Nitrogen 17 mg/dL (9-16); Calcium 9.7 mg/dL (8.4-10.2); Carbon Dioxide 22 mmol/L (22-29); Chloride 108 mmol/L (96-108); Creatinine Clr Calc Pharmacy 121.5; Estimated Glomerular Filt Rate > 60; Glucose Random 87 mg/dL (60-115); Sodium 141 mmol/L (135-145)
[2023-09-17 02:07] LABS: CT PCR NOT DETECTED (Not Detect.); NG PCR NOT DETECTED (Not Detect.)
== END 2023-09-17 02:12 | disposition home or self-care (01) ==
PROVIDERS: Physician Assistant; Emergency Provider Internal Medicine; PCP Pediatrics
DX: N50.812 Left testicular pain (principal); R10.2 Pelvic and perineal pain; Z79.899 Other long term (current) drug therapy
CPT/HCPCS: 0353U; 36415; 74176; 76870; 80048; 81001; 85025; 99284